=== PATIENT | male | born 1950 | race Hispanic/Latino ===

== ENCOUNTER → 2024-06-16 | Outpatient (CLI) | payer OTHER ==
[~2024-06-16] MED LIST: IOHEXOL 350 MG/ML 100ML INFUS..BTL IV ONE; METOPROLOL TARTRATE 1 MG/ML 5ML VIAL IV ONE
== END | disposition home or self-care (01) ==
LOC: RAH 12:36
PROVIDERS: ATTEND Internal Medicine Cardiovascular Disease
DX: R07.9 Chest pain, unspecified (principal)
CPT/HCPCS: 75574; J3490; Q9967

== ENCOUNTER 2024-10-26 08:46 | Day surgery (SDC) | payer OTHER ==
[2024-10-24 11:00] LABS: APPEARANCE,URINE CLEAR (CLEAR); BILIRUBIN,URINE NEGATIVE (NEGATIVE); COLOR,URINE LIGHT-YELLOW (YELLOW); GLUCOSE, URINE (UA) NEGATIVE (NEGATIVE); KETONES,URINE NEGATIVE (NEGATIVE); LEUKOCYTE ESTERASE ,URINE NEGATIVE Leu/uL (NEGATIVE); NITRATE,URINE NEGATIVE (NEGATIVE); OCCULT BLOOD,URINE NEGATIVE (NEGATIVE); PH,URINE 7.5 (5.0-8.0); PROTEIN,URINE NEGATIVE (NEGATIVE); UROBILINOGEN,URINE 0.2 mg/dL (0.2-1.0)
[2024-10-24 11:14] LABS: CREATININE 1.1 mg/dL (0.5-1.3); POTASSIUM 3.5 mmol/L (3.5-5.1)
--- NOTE | 2024-10-24 11:17 | EKG ---
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
[2024-10-24 11:30] LABS: INR 1.05 (0.85-1.15); PROTHROMBIN TIME 11.3 SEC (9.6-11.6)
[2024-10-24 11:32] LABS: PARTIAL THROMBOPLASTIN TIME 29.5 SEC (26.3-35.5)
[2024-10-24 11:47] VITALS: BP 146/73; PULSE 80; RESP 18; TEMP 97.3
[2024-10-24 11:48] LABS: B-TYPE NATRIURETIC PEPTIDE 60 pg/mL (0-100)
[2024-10-24 11:50] LABS: ADD UA MICROSCOPIC NO
[2024-10-24 11:51] LABS: BASOPHILS # (AUTO) 0.04 K/uL (0.00-0.20); BASOPHILS % (AUTO) 0.5 % (0.0-5.0); EOSINOPHILS # (AUTO) 0.16 K/uL (0.00-0.70); EOSINOPHILS % (AUTO) 1.9 % (0.0-8.0); HEMATOCRIT 33.7 % (42-54); IMMATURE GRANULOCYTE ABSOLUTE 0.04 K/uL (0-1); LYMPHOCYTES # (AUTO) 2.1 K/uL (1.0-4.8); LYMPHOCYTES % (AUTO) 24.2 % (21.0-51.0); MEAN CORPUSCULAR HEMOGLOBIN 32.4 pg (27.0-33.0); MEAN CORPUSCULAR HGB CONC 35.9 g/dL (32.0-36.0); MEAN CORPUSCULAR VOLUME 90.3 fL (79-99); MONOCYTES # (AUTO) 0.9 K/uL (0.1-1.0); MONOCYTES % (AUTO) 10.1 % (3.0-13.0); NEUTROPHILS # (AUTO) 5.4 K/uL (1.8-7.7); NEUTROPHILS % (AUTO) 62.8 % (40.0-77.0); PLATELET COUNT (AUTO) 293 K/uL (130-400); RED BLOOD CELL COUNT(AUTO) 3.73 MIL/uL (4.50-6.20); RED CELL DISTRIBUTION WIDTH 11.8 % (11.0-15.5); WHITE BLOOD COUNT (AUTO) 8.5 K/uL (4.8-10.8)
--- NOTE | 2024-10-24 12:46 | NUR ---
REPORT DR DAO INFORMED OF NA AND CHLORIDE LEVELS. MD WILL FOLLOW UP WITH PT AFTER REVIEWING MEDS AND HISTORY.
--- NOTE | 2024-10-24 12:57 | HMCIMG ---
CHEST 1VW HISTORY: Preop COMPARISON: None FINDINGS: A frontal projection of the chest was obtained. No acute pulmonary infiltrates is seen. The heart is normal in size. Elevation of right hemidiaphragm is seen. All the lines and tubes are again seen in place. Aortic calcifications are seen. IMPRESSION: 1. No acute pulmonary infiltrate is seen.
[2024-10-26] VITALS (10 sets, daily range): BP systolic 103–165; BP diastolic 52–87; PULSE 78–105; RESP 12–18; TEMP 97.3–97.8
[~2024-10-26] VITALS: Ht 167.6 cm; Wt 79.4 kg
[~2024-10-26 08:46] MED LIST changes: +HYDR-4068 PO; -IOHEXOL 350 MG/ML 100ML INFUS..BTL IV ONE; +METF-444 PO; -METOPROLOL TARTRATE 1 MG/ML 5ML VIAL IV ONE; +NITR0.4T50 SL; +OMEP20TA20 PO; +SEMA1PEN3 SQ
[2024-10-26] MEDS: 0.9%NACL 1000ML 1,000 ML IV SCH (10:07)
[2024-10-26] MEDS ORDERED: IOHEXOL 350 MG/ML 100ML INFUS..BTL IV ONE (10:51)
[2024-10-26] MEDS ORDERED: LIDOCAINE HCL 400MG/20ML VIAL ONE (10:51)
[2024-10-26] MEDS ORDERED: HEParin-NS 1,000 UNIT/500 ML 1,000 ML IV ONE (10:52)
[2024-10-26] MEDS ORDERED: IOHEXOL-350 50ML VIAL IV ONE (10:52)
[2024-10-26] MEDS ORDERED: HEParin 10,000 UNIT/10ML (1,000 UNIT/ML) VIAL ONE (10:52)
[2024-10-26] MEDS ORDERED: MIDAZOLAM HCL 1 MG/ML 2ML VIAL ONE (11:20)
[2024-10-26] MEDS ORDERED: metoPROLOL tartRATE 1 MG/ML 5ML VIAL IV ONE (11:31)
[2024-10-26] MEDS ORDERED: hydrALAZine 20MG/ML VIAL ONE (11:35)
--- NOTE | 2024-10-26 12:08 | PRN ---
Cath Procedure Report CATH PROCEDURE REPORT CARDIAC CATHETERIZATION REPORT Date of Service: Oct 26, 2024 After informed consent the patient was prepped and draped in the usual fashion. He received a total of 15 cc of 2% xylocaine in the right inguinal area. A six [place] sheath was introduced into the right femoral artery. He did receive 1 mg of Versed for conscious sedation during the procedure. A Yesy four right six [place] diagnostic catheter was advanced over guidewire to the aortic root. Wire was removed and catheter engaged into the [place] right coronary artery which was visualized multiple planes. The catheter was removed and a Yesy four left six [place] diagnostic catheter was advanced over guidewire to the aortic root. Wire was removed and catheter engaged into the left main coronary artery. The left coronary system was visualized multiple planes and catheter was removed. A pigtail catheter was then advanced over guidewire across the aortic valve. Wire was removed and hemodynamics measured. A pullback with continuous hemodynamic monitoring was performed and catheter was removed. The patient did receive IV Lopressor and hydralazine for blood pressure control. A sheathogram was performed and six [place] Angio-Seal closure device applied. The entire procedure was well tolerated without complications. Findings: The right coronary artery is a right-dominant vessel free of obstruction gives rise to normal PDA and posterolateral branches. The left main coronary artery is calcified and has a 30% mid stenosis. The proximal LAD is calcified but there was no obstruction to flow. The remainder of the LAD appears normal. The circumflex artery is free of obstruction gives rise to normal obtuse marginal branches. There was no aortic stenosis. LV ejection fraction was 40-45% by recent echo. Medical management advised. Report dictated by CHARLES Marshall MD, MD Oct 26, 2024 12:08
[2024-10-26] MEDS ORDERED: GLUCAGON 1MG KIT 1 MG ML IM PRN (12:30)
[2024-10-26] MEDS ORDERED: DEXTROSE 50%-WATER 50 ML DISP.SYRIN IV PRN (12:30)
--- NOTE | 2024-10-26 14:10 | NUR ---
urinary: voided 175cc yellow color urine per urinal
--- NOTE | 2024-10-26 14:26 | NUR ---
report: hand off communication given to steffany fox rn.
== END 2024-10-26 16:20 | disposition home or self-care (01) ==
LOC: DAH 08:46
PROVIDERS: ATTEND Internal Medicine Cardiovascular Disease
DX: I25.118 Atherosclerotic heart disease of native coronary artery with other forms of angina pectoris (principal); I11.0 Hypertensive heart disease with heart failure; I50.22 Chronic systolic (congestive) heart failure; E11.9 Type 2 diabetes mellitus without complications; E78.5 Hyperlipidemia, unspecified; I44.7 Left bundle-branch block, unspecified; S82.142K Displaced bicondylar fracture of left tibia, subsequent encounter for closed fracture with nonunion; M25.562 Pain in left knee; I25.5 Ischemic cardiomyopathy; Z79.82 Long term (current) use of aspirin; Z79.84 Long term (current) use of oral hypoglycemic drugs; Z79.899 Other long term (current) drug therapy; X58.XXXD Exposure to other specified factors, subsequent encounter
CPT/HCPCS: 80048; 83880; 85025; 85610; 85730; 81003; 36415; 71045; 93005; 93458; 82948; C1894; C1760; J3490 ×2; J0360; J2250; J1644; Q9967; A4215; A4222; A4221; A4663; A4216; A4606; Q9965; A4223 ×3; 99156; 99157